=== PATIENT | female | born 1960 | race Caucasian/White ===

== ENCOUNTER → 2024-03-29 06:48 | Outpatient (REF) | payer BC, SELFPAY | LOC: WDC 06:48 | PROVIDERS: ATTENDING PHYSICIAN Family Medicine | DX: Z12.31 Encounter for screening mammogram for malignant neoplasm of breast (principal) | CPT/HCPCS: 77063; 77067 ==

== ENCOUNTER 2025-01-30 08:39 | Emergency (ER) | payer BC, SELFPAY ==
[2025-01-30 08:45] VITALS: BP 161/86
--- NOTE | 2025-01-30 09:35 | ED.SKININJ ---
HPI-Injury
General
Chief Complaint: Skin Problem
Source: patient
Exam Limitations: none
Time Seen by Provider: 01/30/25 09:20
Nursing documentation reviewed up to this point in time: agreed with
History of Present Illness-Injury
Initial Injury comments:
64-year-old female with history of HTN states she while chopping wood 5 months ago at home she felt an insect bite on the posterior right ankle area, she shook her leg but did not see anything in a short while later saw a brown spider she thought
was a brown recluse spider and thought that that is what bit her. She developed a redness around the area which has persisted, she had a routing visit with her PCP in November, showed him and he said keep an eye on it and if it gets worse, see somebody.
She spent this past weekend with her friends and one is a nurse and told her she should be treated for cellulitis. Her is in a building next door for an appointment so she thought she'd come here and have it checked. She denies f/c. States
the area has become hard and the discoloration is persistent. She was on 10 days of Amoxicillin for tooth problem, last dose 01/20 and thought the area looked improved but over past few days, looks worse again.
Past History
Past History
ED Past Medical History: HTN
ED Past Surgical History:
Social History
Tobacco: Non-smoker
Alcohol: Occasional
Drug: None
Personal:
Living: with family
Review of Systems
Review of Systems
Allergies reviewed?: Yes
All Other Systems: ROS reviewed and negative except as documented in HPI and ROS
Constitutional: Denies fever or chills
Skin: Reports other (persistent redness, hardness at site of insect/spider bite posterior right ankle 5 months ago)
Neurological: Denies weakness or numbness
Phy Exam
Physical Exam
Physical Exam:
GENERAL: No acute distress. A&Ox3.
CONSTITUTIONAL: Afebrile.
RESPIRATORY: Regular respirations, nonlabored, lungs clear.
CARDIOVASCULAR: Regular rate and rhythm, no murmurs, no rubs.
MUSCULOSKELETAL: Moves with ease. Well perfused.
SKIN: Warm, dry, pink, there is a brawny reddened area posterior right ankle with a darker red leathery hardened center. No palpable abscess, no drainage, surrounding skin is normal, no lymphangitis. Distal neurovascular intact.
Area examined closely, no stinger or other area is non tender.
PSYCH: Normal mood and affect. Well kept, interactive and appropriate
NEUROLOGIC: Awake, alert and oriented. No focal neurological deficits
Course
Vital Signs
Initial and Last Documented VS:
Initial Vital Signs
Temp Pulse Resp BP Pulse Ox
98.2 F 96 16 161/86 98
01/30/25 08:45 01/30/25 08:45 01/30/25 08:45 01/30/25 08:45 01/30/25 08:45
Last Documented Vital Signs
Temp Pulse Resp BP Pulse Ox
98.2 F 96 16 161/86 98
01/30/25 08:45 01/30/25 08:45 01/30/25 08:45 01/30/25 08:45 01/30/25 09:37
MDM/Problems Addressed
Differential Diagnosis Includes:
Cellulitis, chronic stasis changes of skin
MDM/Problems Addressed:
64-year-old female with history of HTN states she while chopping wood 5 months ago at home she felt an insect bite on the posterior right ankle area, she shook her leg but did not see anything in a short while later saw a brown spider she thought
was a brown recluse spider and thought that that is what bit her. She developed a redness around the area which has persisted, she had a routing visit with her PCP in November, showed him and he said keep an eye on it and if it gets worse, see somebody.
She spent this past weekend with her friends and one is a nurse and told her she should be treated for cellulitis. Her is in a building next door for an appointment so she thought she'd come here and have it checked. She denies f/c. States
the area has become hard and the discoloration is persistent. She was on 10 days of Amoxicillin for tooth problem, last dose 01/20 and thought the area looked improved but over past few days, looks worse again.
*Pulse Oximetry
SaO2: 98
Oxygen Mode of Delivery: Room air
Patient hypoxic: not evaluated
*Critical Care Note
Total Time (30-74mins, 75-104mins- exclusive of procedures): Not Applicable
ED Attending Note
-
Portions of this chart may have been created with voice recognition software.� Occasional wrong word or��sound alike� substitutions may have occurred due to the inherent limitations of voice recognition software.
Discharge Plan
Departure
Patient Disposition: Home (Routine Discharge)
Date of Disposition: 01/30/25
Time of Disposition: 09:30
Patient with high blood pressure during this ER visit?: No
Condition: Good
Discharge Problem:
Insect bite of right lower extremity
Instructions: Cellulitis (Skin Infection), Adult (DC), Insect bites and stings - ED discharge instructions
Prescriptions:
New
doxycycline hyclate 100 mg tablet
100 mg PO BID Qty: 20 0RF
No Action
multivitamin [Daily Multiple] 1 EACH tablet
1 ea PO DAILY
cetirizine 10 MG tablet
10 mg PO DAILY
glucosamine [id number]-fyz-[id number] 1 EACH tablet
1 ea PO DAILY
Calcium
1 tab PO DAILY
Cranberry
1 tab PO DAILY
ramipril 10 MG capsule
10 mg PO DAILY
levofloxacin 500 MG tablet
500 mg PO DAILY Qty: 7 0RF
metronidazole 500 MG tablet
500 mg PO TID Qty: 21 0RF
Referrals:
Your Durable Medical Equipment Technician [Other] - Next open appointment
Enrico Zuniga MD [Family Provider, Family Practice]
Activity Restrictions/Additional Instructions:
As we discussed, I sent a prescription to your pharmacy for doxycycline to take 100 mg twice a day for 10 days.
See your lead person if the area is not improving.
The hardness and discoloration may become chronic and be there for a long while or forever to some degree.
Interventions
Interventions:
*Risk Screen - Suicide Last Done: 01/30/25 08:45
*Neglect/Abuse Screening Last Done: 01/30/25 08:45
*Nursing Disposition Last Done: 01/30/25 09:56
ED-Skin Assessment Last Done: 01/30/25 09:35
Discharge Date and Time
Discharge Date/Time: 01/30/25 09:56
Print Language: BERMUDIAN
== END 2025-01-30 09:56 | disposition home or self-care (01) ==
LOC: EMR 08:39
PROVIDERS: EMERGENCY PHYSICIAN Emergency Medicine; FAMILY PHYSICIAN Family Medicine
DX: L53.9 Erythematous condition, unspecified (principal); S80.861A Insect bite (nonvenomous), right lower leg, initial encounter; W57.XXXA Bitten or stung by nonvenomous insect and other nonvenomous arthropods, initial encounter; I10 Essential (primary) hypertension
CPT/HCPCS: 99283

== ENCOUNTER → 2025-03-31 08:06 | Outpatient (REF) | payer BC, SELFPAY | LOC: WDC 08:06 | PROVIDERS: ATTENDING PHYSICIAN Family Medicine | DX: Z12.31 Encounter for screening mammogram for malignant neoplasm of breast (principal) | CPT/HCPCS: 77063; 77067 ==